=== PATIENT | female | born 1960 | race Caucasian/White ===

== ENCOUNTER 2019-12-06 12:25 | Outpatient (CLI) | payer MEDICAID ==
[~2019-12-06] VITALS: Ht 152.4 cm; Wt 78.2 kg
--- NOTE | ~2019-12-06 | HEMODYNAMI ---
PATIENT:CHIVO PRINCE MEDICAL RECORD: [id number] : 60 [facility] [id number] ADMISSION DATE: 12/06/19 Generatedon:12/07/201914:52 Patient name: CHIVO PRINCE Patient #: [id number] : 1960 Date of study: 12/07/2019 Page: Of Hemodynamic Procedure Report Patient Data Patient Demographics Procedure consent was obtained First Name: CHIVO Gender: Female Last Name: SURESH : 1960 Patient #: [id number] Age: 59 year(s) Race: Unknown SSN: [id number] Additional ID: [id number] Contact details Address: [address] [place] [address] State: [place] City: [place] Zip code: [address] Past Medical History Allergies: No known allergies Admission Admission Data Admission Date: 12/06/2019 Admission Time: 12:25 Arrival Date: 12/07/2019 Arrival Time: 0:00 Admit Source: Other Insurance Payor: Private Room #: D.2121 health insurance [facility] #: [id number] Height (in.): 59.84 BSA: 1.75 (m2) Height (cm.): 152 BMI: 33.76 (kg/m2) Weight (lbs.): 171.96 Weight (kg.): 78 Lab Results Lab Result Date: 12/07/2019 Lab Result Time: 0:00 Biochemistry Name Units Result Min Max BUN mg/dl 14 --(--*-)-- 7 18 Creatinine mg/dl 0.9 --(-*--)-- 0.6 1.3 CBC Name Units Result Min Max Hemoglobin g/dl 13.4 -*(----)-- 13.5 17.5 Procedure Procedure Types Cath Procedure Diagnostic Procedure C LH w/Coronaries Sedation Charges Moderate Sedation up to 30 minutes Procedure Description Procedure Date Procedure Date: 12/07/2019 Procedure Start Time: 12:58 Procedure End Time: 13:20 Procedure Staff Name Function Smiley Dc RT Monitor Zack Macias MD Performing Physician Nohemi Selby RT Scrub Ashley Camara RN Nurse Procedure Data Cath Procedure Fluoroscopy Diagnostic fluoroscopy Total fluoroscopy Time: 1.6 time: 1.6 min min Diagnostic fluoroscopy Total fluoroscopy dose: 301 dose: 301 mGy mGy Contrast Material Contrast Material Type Amount (ml) Isovue 300 39 Entry Location Entry Primary Successful Side Size Upsize Upsize Entry Closure Succes sful Closure Location (Fr) 1 (Fr) 2 (Fr) Remarks Device Remarks Femoral Right 5 Fr Exoseal artery Estimated blood loss: 5 ml Procedure Complications No complications Procedure Medications Medication Administration Route Dosage 0.9% NaCl I.V. 100 ml/hr Oxygen etCO2 Nasal cannula 2 l/min Lidocaine 2% added to field 20 Heparin Flush Bag added to field 2 bags (1000units/500ml NS) Radial Cocktail added to field 1 syringe (Verapamil 2mg/Nitro 400mcg/Heparin 1500units) Versed I.V. 2 mg Fentanyl I.V. 50 mcg Versed I.V. 2 mg Fentanyl I.V. 50 mcg Hemodynamics Rest BSA: 1.75 (m2) HGB: 13.4 (g/dl) O2 Consumption: Estimated: 177.48 (ml/min) O2 Co nsumption indexed: Estimated:101.42 (ml/min/m) Heart Rate: 87 (bpm) Pressure Samples Time Site Value (mmHg) Purpose Heart Use Rate(bpm) 13:14 LV 188/-5,7 Snapshot 90 13:14 LV 188/-1,14 Pullback 86 13:14 AO 187/89(136) Pullback 86 Gradients Valve Time Site 1 Site 2 Mean SEP/DFP Peak To Heart Use (mmHg) (sec/min) Peak Rate (mmHg) (bpm) Aortic 13:14 LV AO 6 23 1 86 188/-1,14 187/89(136) Calculations Valve P-P Mean Valve Index Valve Source Name Gradient Area Flow (cm2) Aortic 1 6 1 6 Snapshots Pre Cath Intra NCS Post Cath Vital Signs Time Heart Resp SPO2 etCO2 NIBP (mmHg) Rhythm Pain Sedation Rate (ipm) (%) (mmHg) Status Level (bpm) 12:46:11 82 14 98 36.3 183/98(137) NSR 0 (11) 10(A) , No pain 12:50:48 91 13 97 36.3 182/96(146) NSR 0 (11) 9(A) , No pain 12:55:19 79 14 97 36.3 186/100(134) NSR 0 (11) 9(A) , No pain 12:59:55 84 14 97 14.3 192/99(136) NSR 0 (11) 9(A) , No pain 13:04:34 88 11 96 33.2 176/99(130) NSR 0 (11) 9(A) , No pain 13:09:06 84 14 98 37 182/99(140) NSR 0 (11) 9(A) , No pain 13:13:34 91 14 99 28.7 183/96(135) NSR 0 (11) 10(A) , No pain 13:17:58 86 15 98 37.8 174/100(130) NSR 0 (11) 10(A) , No pain Medications Time Medication Route Dose Verified Delivered Reason Notes E ffectiveness by by 12:45:16 0.9% NaCl I.V. 100 Zack Ashley used for ml/hr Gilberto Camara insurance biller 12:45:22 Oxygen etCO2 2 l/min Zack Ashley used for Nasal Gilberto Camara procedure cannula RN 12:45:28 Lidocaine 2% added 20ml Zack Zack for local to vial Gilberto Macias MD anesthetic field 12:45:31 Heparin Flush added 2 bags Zack Zack used for Bag to Gilberto Macias MD procedure (1000units/500ml field NS) 12:46:25 Versed I.V. 2 mg Zack Ashley for Gilberto Camara sedation RN 12:46:38 Fentanyl I.V. 50 mcg Zack Ashley for Gilberto Camara sedation RN 12:48:54 Radial Cocktail added 1 Zack Zack used for (Verapamil to syringe Gilberto Macias MD procedure 2mg/Nitro field 400mcg/Hepari 12:59:54 Versed I.V. 2 mg Zack Ashley for Gilberto Camara sedation RN 12:59:57 Fentanyl I.V. 50 mcg Zack Ashley for Gilberto Camara sedation meat curer Log Time Note 12:19:29 Arrival Date: 12/07/2019 12:00:00 AM 12::31 Admit Source: Other 12::36 Insurance Payor : Private health insurance 12:19:48 Patient Height : 59.84 inches 12:19:51 Patient Weight : 171.96 lbs 12:20:30 Lab Result : Hemoglobin 13.4 g/dl 12:20:30 Lab Result : Creatinine 0.9 mg/dl 12:20:30 Lab Result : BUN 14 mg/dl 12:20:38 Diagnostic Cath Status : Elective 12:: Procedure Status Urgent Heart Cath (IP). 12::30 Ashley Camara RN sent for patient. Start room use. 12::31 Time tracking: Regular hours (M-F 7:00 - 5:00) 12::36 Plan of Care:Hemodynamics will remain stable., Cardiac rhythm will remain stable., Comfort level will be maintained., Respiratory function will remain adequate., Patient/ family verbilizes understanding of procedure., Procedure tolerated without complication., Recovers from procedure without complications.. 12:22:08 Patient received from [employer] to [facility] 2 Alert and oriented. Tansferred to table in Supine position. 12:22:17 H&P Date Dictated: 12/07/2019 Within 30 days and on chart., H&P Addendum completed by physician on day of procedure. (MUST COMPLETE FOR ALL OUTPATIENTS). 12:22:21 Pre-op teaching completed and patient verbalized understanding. 12:22:24 Family in patients room. 12:22:26 Patient NPO since Midnight. 12:22:34 Patient allergic to No known allergies 12:23:13 2) 60-89 Mildly reduced kidney function, and other findings (as for stage 1) point to kidney disease. 12:24:19 Maximum allowable contrast dose (3.7 X eGFR X 0.75)188 ml. 12:26:50 Lab results completed and on chart. 12:26:55 Stress Test: no; N/A ? 12:26:59 Risk of Mortality: 1.7 12:27:02 Risk of blood transfusion: .6 12:27:06 Risk of JONA: 2.2 12:44:49 Signed procedure consent form obtained from patient. 12:44:50 Correct patient and procedure confirmed by team. 12:44:50 Warm blankets applied, and yesi hugger turned on for patient comfort. 12:44:51 Vital chart was started 12:44:51 ECG and BP/O2 sat monitors applied to patient. 12:44:52 Baseline sample Acquired. 12:44:55 Rhythm: sinus rhythm 12:44:57 Full Disclosure recording started 12:45:06 Is the patient allergic to Iodine/contrast media? No. 12:45:07 Was the patient premedicated? Yes 12:45:09 Is patient on blood thinner?No 12:45:10 Patient diabetic? Yes. 12:45:16 0.9% NaCl 100 ml/hr I.V. was administered by Ashley Camara RN; used for procedure; Verbal order read back and verified. 12:45:17 Previous problem with sedation/anesthesia? Yes nausea 12:45:21 Snore? Yes 12:45:22 Sleep apnea? No 12:45:22 Oxygen 2 l/min etCO2 Nasal cannula was administered by Ashley Camara RN; used for procedure; Verbal order read back and verified. 12:45:23 Deviated septum? No 12:45:24 Opens mouth fully? Yes 12:45:25 Sticks out tongue? Yes 12:45:27 Airway obstruction? No ? 12:45:28 Lidocaine 2% 20ml vial added to field was administered by Zack Macias MD; for local anesthetic; Verbal order read back and verified. 12:45:30 Dentures? No ? 12:45:31 Heparin Flush Bag (1000units/500ml NS) 2 bags added to field was administered by Zack Macias MD; used for procedure; Verbal order read back and verified. 12:45:33 Pre procedure: right dorsailis pedis pulse 2+ Normal; easily identifiable; not easily obliterated 12:45:35 Pre procedure: left dorsailis pedis pulse 2+ Normal; easily identifiable; not easily obliterated 12:45:37 Patient pain scale 0/10 ?. 12:45:43 IV patent on arrival in left forearm with 0.9% NaCl at [facility]. 12:45:51 Right Radial & Right Groin area was prepped with chlora-prep and draped in sterile fashion 12:45:52 Alarms reviewed by R. N. 12:45:53 Sharps counted by scrub and verified by R.N. 12:45:54 --------ALL STOP TIME OUT------ 12:45:54 Physician arrived 12:45:55 Final Timeout: patient, procedure, and site verified with staff and physician. All members of the team are in agreement. 12:45:57 Right Radial & Right Groin site verified by team. 12:46:00 Fire Safety Assessment: A--An alcohol-based skin anteseptic being used preoperatively., C--Open oxygen or nitrous oxide is being used., D--An ESU, laser, or fiber-optic light is being used. 12:46:03 Physical assessment completed. ASA score P 2 - A patient with mild systemic disease as per Zack Macias MD. 12:46:08 Sedation plan: IV Moderate Sedation Medication:Versed, Fentanyl 12:46:13 Use device set Radial Dx or PCI 12:46:15 Bag Decanter (2002) opened to sterile field. 12:46:15 Medline Cath Pack ([id number]) opened to sterile field. 12:46:15 ACIST Syringe (98888) opened to sterile field. 12:46:16 ACIST Manifold (40422) opened to sterile field. 12:46:16 ACIST Hand Control (99728) opened to sterile field. 12:46:17 MBrace Wrist Support ([id number]) opened to sterile field. 12:46:17 Tegaderm 4 x 4 (1626W) opened to sterile field. 12:46:25 Versed 2 mg I.V. was administered by Ashley Camara RN; for sedation; Verbal order read back and verified. 12:46:26 EMERALD Guide Wire (830-864) opened to sterile field. 12:46:27 SHEATH 6FR RAIN (4607311) opened to sterile field. 12:46:38 Fentanyl 50 mcg I.V. was administered by Ashley Camara RN; for sedation; Verbal order read back and verified. 12:48:30 If diabetic: On Metformin? Yes 12:48:34 If on Metformin: Last Dose? 12/06/2019 12:48:54 Radial Cocktail (Verapamil 2mg/Nitro 400mcg/Heparin 1500units) 1 syringe added to field was administered by Zack Macias MD; used for procedure; Verbal order read back and verified. 12:58:19 Procedure started. 12:58:28 Local anesthetic to right radial artery with Lidocaine 2% by Zack Macias MD.INITIAL ACCESS ONLY 12:59:54 Versed 2 mg I.V. was administered by Ashley Camara RN; for sedation; Verbal order read back and verified. 12:59:57 Fentanyl 50 mcg I.V. was administered by Ashley Camara RN; for sedation; Verbal order read back and verified. 13:05:13 Unable to gain radial access; Preparing for femoral access 13:05:56 Local anesthetic to right femoral artery with Lidocaine 2% by Zack Macias MD.ADDITIONAL ACCESS 13:06:08 A 5 Fr sheath was inserted into the Right Femoral artery 13:06:52 DIAGNOSTIC Multipack 5Fr catheter set ([id number]) opened to sterile field. 13:06:53 SHEATH 5FR [place] (WWU461) opened to sterile field. 13:07:35 DIAGNOSTIC Multipack 5Fr catheter set (OX0980) opened to sterile field. 13:10:28 5 Fr jl 4 guide catheter was inserted over the wire 13:10:32 LCA angiography performed. 13:10:35 Injector settings: Ml/sec: 3, Volume: 6, 13:10:42 Catheter removed. 13:10:50 5 Fr 3drc guide catheter was inserted over the wire 13:11:39 RCA angiography performed. 13:12:39 Injector settings: Ml/sec: 3, Volume: 6, 13:12:52 Catheter removed. 13:13:07 5 Fr pigtail guide catheter was inserted over the wire 13:14:24 LV hemodynamics recorded. 13:14:25 LV gram done using MARES 13:14:28 Injector settings: Ml/sec: 5, Volume: 15, 13:14:38 EF : 60 % 13:15:05 EXOSEAL 5Fr (EX500) opened to sterile field. 13:15:42 Catheter removed. 13:16:11 Sheath removed intact; hemostasis achieved with Exoseal to the Right Femoral artery. 13:16:13 Procedure ended.(Physican Out) 13:17:47 Fluoroscopy time 01.60 minutes. 13:17:51 Fluoroscopy dose: 301 mGy 13:17:51 Flurop Dose total: 301 13:17:58 Dose Area Product 56434 mGy/cm. 13:18:05 Contrast amount:Isovue 300 39ml. 13:18:08 Maximum allowable dose exceeded? No. 13:18:09 Sharps counted by scrub and verified by R.N. 13:18:13 Insertion/operative site no bleeding no hematoma. 13:18:18 Post-op/insertion site Right Femoral artery dressed using a 4 x 4 and Tegaderm. 13:18:25 Post Procedure Pulses reassessed and unchanged 13:18:29 Post procedure rhythm: unchanged. 13:18:32 Estimated blood loss: 5 ml 13:18:34 Post procedure instruction explained to patient.Patient verbalizes understanding. 13:18:35 Patient needs reinforcement of post procedure teaching. 13:19:09 Procedure type changed to Cath procedure, Diagnostic procedure, LHC, [facility] w/Coronaries, Sedation Charges, Moderate Sedation up to 30 minutes 13:19:10 Procedure and supply charges have been captured, reviewed, submitted and are correct. 13:19:17 Procedure Complication : No complications 13:19:20 Vital chart was stopped 13:19:[address] [facility] Findings: mild to moderate CAD (<70%) 13:19:34 Operative report dictated upon procedure completion. 13:19:35 See physician's report for complete and final results. 13:19:51 Report given to Med II. 13:19:56 Patient transfered to Med II with Stretcher. 13:20:02 Full Disclosure recording stopped 13:20:02 Procedure ended. 13:20:16 End room use (Document Last) 13:22:08 End room use (Document Last) Device Usage Item Name Manufacture Quantity Catalog Hospital Part Current Minima l Lot# / Number Charge Number Stock Stock Serial# Code ACIST Acist 1 84787 332508 940387 465167 20 Syringe Medical (19818) Systems Inc Medline Medline 1 [id number] 694644 10608 265892 5 Cath Pack ([id number]) Bag Microtek 1 686621 75811 261252 5 Decanter Medical Inc. () ACIST Hand Acist 1 64837 884088 289238 884613 5 Control Medical (50554) Systems Inc ACIST Acist 1 75229 712117 291562 862111 5 Manifold Medical (48349) Systems Inc Tegaderm 4 3M 1 1626W 883471 612949 241021 5 x 4 (1626W) MBrace Advanced 1 140-0250-00 038157 46817 135579 5 Wrist Vascular Support Dynamics ([id number]) EMERALD Cardinal 1 502-455 924078 961095 152582 5 Guide Wire Health (502-455) SHEATH 6FR Cardinal 1 [id number] 090636 6493213 527333 5 [facility] ([id number]) DIAGNOSTIC Cardinal 2 BT8562 433855 84820 657889 30 [facility] 5Fr catheter set (BQ2902) SHEATH 5FR Terumo 1 MLO019 604674 269088 028636 5 [place] (RVN781) EXOSEAL 5Fr Cardinal 1 EX500 810538 172255 529000 10 (EX500) Health Signature Audit Flom Stage Time Signature Unsigned Intra-Procedure 12/07/2019 Smiley Irwin 1:22:08 PM RT(R) Intra-Procedure 12/07/2019 Zack Macias MD 1:22:50 PM 12/07/2019 2:50:06 PM Intra-Procedure 12/07/2019 Zack Macias MD 2:52:[address] [address]
[2019-12-06] MEDS ORDERED: TENORMIN50 MG PO (12:41)
[2019-12-06] MEDS ORDERED: METFORMIN HCL500 M1 PO (12:41)
[2019-12-06] MEDS ORDERED: SYNTHROID75 MCG PO (12:41)
[2019-12-06] MEDS ORDERED: ZOCOR40 MG PO (12:42)
[2019-12-06] MEDS ORDERED: LISINOPRIL10 MG PO (12:42)
[2019-12-06 13:03] LABS: BASOPHILS 0.5 % (0-2); HEMATOCRIT 41.8 % (36.0-48.0); HEMOGLOBIN 13.7 g/dL (12-16); IMMATURE GRANULOCYTES 0.2 % (0-5); LYMPHOCYTES 24.3 % (15-50); MCHC 32.8 g/dL (31.0-37.0); MCV 91.5 fL (80.0-100.0); MEAN PLATELET VOLUME 9.2 fL (7.4-10.4); MONOCYTES 9.8 % (2-11); NEUTROPHILS 64.2 % (40-80); PLATELET COUNT 339 10x3/uL (130-400); RBC 4.57 10x6/uL (4.00-5.40); RDW 13.2 % (11.5-14.5); WBC 8.8 10x3/uL (4.8-10.8)
[2019-12-06 13:14] LABS: CALC OSMOLALITY 283 mosm/kg (275-300); CALCIUM 8.9 mg/dL (8.5-10.1); CARBON DIOXIDE 28.2 mmol/L (21.0-32.0); CHLORIDE - SERUM 105 mmol/L (98-107); CREATININE - SERUM 0.7 mg/dL (0.6-1.3); GLUCOSE 95 mg/dL (74-106); POTASSIUM - SERUM 3.6 mmol/L (3.5-5.1); SODIUM 143 mmol/L (136-145); UREA NITROGEN 10 mg/dL (7-18); eGFR NON AFRICAN AMERICAN > 90 mL/min (90-120)
[2019-12-06 13:16] LABS: APTT 25.6 SECONDS (22.8-39.4); INR 1.03 (0.85-1.17); PROTIME 13.5 SECONDS (11.6-15.0)
[2019-12-06 13:31] LABS: ALBUMIN 3.5 g/dL (3.4-5.0); ALKALINE PHOSPHATASE 60 U/L (30-120); ALT (SGPT) 23 U/L (10-68); BILIRUBIN - TOTAL 0.57 mg/dL (0.2-1.3); CKMB 0.8 U/L (0.0-3.6); CREATINE KINASE 50 UL (21-215); MAGNESIUM - SERUM 1.8 mg/dL (1.8-2.4); PROTEIN - SERUM 7.7 g/dL (6.4-8.2)
[2019-12-06 13:38] LABS: TROPONIN-I < 0.017 ng/mL (0.000-0.060)
[2019-12-06 14:59] LABS: CKMB 0.7 U/L (0.0-3.6); CREATINE KINASE 50 UL (21-215); TROPONIN-I < 0.017 ng/mL (0.000-0.060)
[2019-12-06 15:49] VITALS: BP 167/68; BMI 33.6
--- NOTE | 2019-12-06 16:20 | NUR ---
NEW PATIENT ADMIT FROM ER VIA WC ACCOMPANIED BY HOSPITAL STAFF AND SPOUSE. PATIENT TRANSFERRED TO BED WITHOUT DIFFICULTY. PATIENT DENIES ANY NEEDS OR PAIN.ASSESMENT COMPLETED. PATIENT ORIENTED TO ROOM AND CALL LIGHT . WILL PROCEED WITH ANY NEW ORDERS AND PLAN OF CARE. AR UP X 2 BED IN LOW POSITION AND CALL LIGHT IN REACH.
[2019-12-06 17:10] VITALS: Ht 152.4 cm; Wt 78.2 kg
[2019-12-06 18:10] VITALS: BP 167/68
--- NOTE | 2019-12-06 18:28 | NUR ---
PATIENT IS STABLE AND VSS. PATIENT DENIES ANY NEEDS OR PAIN. WILL CONTINUE TO MONITOR. SR UP X 2 BED IN LOW POSITION AND CALL LIGHT IN REACH.
[2019-12-06 18:44] LABS: CHOL - HDL RATIO 3.5 ratio (2.3-4.1); LDL-HDL RATIO 1.6 ratio (1.5-3.5)
[2019-12-06 18:49] LABS: BILIRUBIN NEGATIVE (NEGATIVE); GLUCOSE NEGATIVE (NEGATIVE); KETONE NEGATIVE (NEGATIVE); NITRITE NEGATIVE (NEGATIVE); UROBILINOGEN NORMAL (NORMAL)
[2019-12-06 19:14] LABS: UDS - AMPHET NEGATIVE QUAL (NEGATIVE); UDS - BARB NEGATIVE QUAL (NEGATIVE); UDS - BENZO NEGATIVE QUAL (NEGATIVE); UDS - COCAINE NEGATIVE QUAL (NEGATIVE); UDS - OPIATE NEGATIVE QUAL (NEGATIVE); UDS - PCP NEGATIVE QUAL (NEGATIVE); UDS - THC NEGATIVE QUAL (NEGATIVE)
--- NOTE | 2019-12-06 19:44 | NUR ---
RECEIVED BEDSIDE REPORT. PATIENT IS ALERT AND ORIENTED, RESTING COMFORTABLY IN BED. RESPIRATIONS ARE EVEN AND UNLABORED. NO S/S OF DISTRESS. NO C/O PAIN. NEEDS MET. CALL LIGHT WITHIN REACH. WILL CPOC.
[2019-12-06 20:00] VITALS: BP 152/81
[2019-12-06 20:27] LABS: CKMB 0.8 U/L (0.0-3.6); CREATINE KINASE 48 UL (21-215); TROPONIN-I < 0.017 ng/mL (0.000-0.060)
[2019-12-07] VITALS: BP 169/86
--- NOTE | 2019-12-07 01:54 | NUR ---
PATIENT RESTING COMFORTABLY IN BED. RESPIRATIONS ARE EVEN AND UNLABORED. NO S/S OF DISTRESS. NO C/O PAIN. CALL LIGHT WITHIN REACH. WILL CPOC.
[2019-12-07 01:58] LABS: BASOPHILS 0.5 % (0-2); EOSINOPHILS 1.2 % (0-7); HEMATOCRIT 41.1 % (36.0-48.0); HEMOGLOBIN 13.4 g/dL (12-16); IMMATURE GRANULOCYTES 0.1 % (0-5); LYMPHOCYTES 23.7 % (15-50); MCH 29.8 pg (26.0-34.0); MCHC 32.6 g/dL (31.0-37.0); MCV 91.5 fL (80.0-100.0); MONOCYTES 11.1 % (2-11); NEUTROPHILS 63.4 % (40-80); PLATELET COUNT 385 10x3/uL (130-400); RBC 4.49 10x6/uL (4.00-5.40); RDW 13.1 % (11.5-14.5); WBC 9.9 10x3/uL (4.8-10.8)
[2019-12-07 02:21] LABS: CALCIUM 8.4 mg/dL (8.5-10.1); CARBON DIOXIDE 30.5 mmol/L (21.0-32.0); CHLORIDE - SERUM 105 mmol/L (98-107); CKMB 0.6 U/L (0.0-3.6); CREATINE KINASE 45 UL (21-215); GLUCOSE 125 mg/dL (74-106); MAGNESIUM - SERUM 1.9 mg/dL (1.8-2.4); POTASSIUM - SERUM 3.9 mmol/L (3.5-5.1); SODIUM 143 mmol/L (136-145); TROPONIN-I < 0.017 ng/mL (0.000-0.060); eGFR NON AFRICAN AMERICAN 68 mL/min (90-120)
[2019-12-07 02:22] LABS: CALC OSMOLALITY 286 mosm/kg (275-300); CREATININE - SERUM 0.9 mg/dL (0.6-1.3); UREA NITROGEN 14 mg/dL (7-18)
[2019-12-07 04:00] VITALS: BP 142/88
[2019-12-07 09:33] VITALS: BP 186/94
--- NOTE | 2019-12-07 13:41 | NUR ---
PT RETURNED FROM [facility]. RIGHT AND LEFT FEMORAL SITES C/D/I WITH NO S/S OF HEMATOMA PRESENT. NS INFUSING @200ML/HR VIA L.AC PIV. NO S/S OF DISTRESS NOTED. WILL CTM.
[2019-12-07] MEDS ORDERED: PROTONIX40 MG PO (14:13)
--- NOTE | 2019-12-07 16:07 | NUR ---
I have reviewed this patient and I concur with the Shift Assessment completed by the Licensed Practical Nurse today this shift.
[2019-12-07 16:09] VITALS: BP 176/92
--- NOTE | 2019-12-07 16:43 | NUR ---
PT DISCHARGED HOME VIA WHEELCHAIR WITH FAMILY. PIV REMOVED WITH CATHETER TIP FULLY INTACT. PT SIGNED PROPER DISCHARGE INSTRUCTIONS AND REMOVED ALL VALUABLES FROM THE ROOM. TELEMETRY REMOVED AND RETURNED.
== END 2019-12-07 16:44 | disposition home or self-care (01) ==
LOC: D.OPS 12:25 → D.M2 12:25 → D.ER 12:25 → EDSTATUS 14:39 → D.M2 14:39 → D.OPS 12-07 16:44
PROVIDERS: Emergency Medicine; Family Medicine; Internal Medicine Interventional Cardiology; ATTEND Internal Medicine Nephrology
DX: I20.0 Unstable angina (principal); R07.9 Chest pain, unspecified; E03.9 Hypothyroidism, unspecified; I10 Essential (primary) hypertension; E11.9 Type 2 diabetes mellitus without complications